=== PATIENT | female | born 2000 | race Caucasian/White ===

== ENCOUNTER → 2020-02-26 | Outpatient (CLI) | payer BC ==
[~2020-02-26] MED LIST: PEN-VEE K500 MG PO; PREVACID30 M1 PO; TYLENOL W/CODEI1 TA2 PO; Zofran4 MG PO
== END | disposition home or self-care (01) ==
LOC: RAD 10:26
PROVIDERS: ATTEND Nurse Practitioner Family
DX: R10.13 Epigastric pain (principal); R11.0 Nausea; R53.83 Other fatigue; Z86.19 Personal history of other infectious and parasitic diseases